=== PATIENT | female | born 1950 ===

== ENCOUNTER 2021-02-01 16:36 | Emergency (ER) | payer MEDICARE ==
[2021-02-01] MEDS ORDERED: LIDOCAINE (4%) 40 MG/ML TOPICAL SOLN 50 ML BOTTLE TP ONE (17:28)
[2021-02-01] MEDS ORDERED: METOCLOPRAMIDE 10 MG/2 ML INJ IV ONE (17:28)
[2021-02-01] MEDS ORDERED: diphenhydrAMINE 50 MG/ML VIAL IV ONE (17:28)
[2021-02-01] MEDS ORDERED: ACETAMINOPHEN 325 MG TAB PO ONE (17:28)
[2021-02-01] MEDS ORDERED: SODIUM CHLORIDE 0.9% 500 ML 500 ML IV ONE (17:28)
[2021-02-01] MEDS ORDERED: amLODIPine 5 MG TAB PO ONE (17:29)
--- NOTE | 2021-02-01 17:29 | Emergency Department Report ---
ED General Adult HPI - General Chief complaint: Headache Stated complaint: HBP/ HEADACHE PUI?: No Time Seen by Provider: 02/01/21 16:51 Source: patient, RN notes reviewed Mode of arrival: Ambulatory Limitations: Language Barrier - History of Present Illness Initial comments: The patient was evaluated in the emergency department for symptoms described in the history of present illness. He/she was evaluated in the context of the global COVID-19 pandemic, which necessitated consideration that the patient might be at risk for infection with the virus that causes COVID-19. Institutional protocols and algorithms that pertain to the evaluation of patients at risk for COVID-19 are in a state of rapid change based on informatio n released by regulatory bodies including the CDC and federal and state organizations. These policies and algorithms were followed during the patient's care in the emergency department. Please note that these policies, procedures and recommendations changed on a rapid basis. 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 She is not known to myself previously. Her past medical history includes diabetes, and hypertension. Current medications include Metformin, Percocet, prednisone, HCTZ, atorvastatin, gabapentin, losartan, and sodium bicarbonate. She also has a history of cataract procedure on her bilateral eyes in the distant past. The patient presents to the ER today with a complaint of headache, nausea, and high blood pressure. The patient states she checks her blood pressure on a morning basis, and it typically is 1 20-1 30 systolic. This morning was 150 systolic. She also complains of headache which is frontal yesterday, and bitemporal today and yesterday, present since around 7:00 PM yesterday. The headache is constant. The headache is not sudden or thunderclap in nature. The headache is not maximal in intensity at onset. The patient denies loss of vision, and she denies pain with chewing or swallowing food. She also describes paracervical neck pain, which is similar to prior headaches, although more intense. She had a headache like this approximately 2 weeks ago, which was similar in nature, although not intense. The patient denies midline neck pain, stiffness of the neck, fever, chest pain, abdominal pain, vomiting, extremity weakness and numbness, dysarthria, and ataxia. She also states she has not started any new or different medications. She has not taken anything at home for her headache. -: Gradual, hour(s), days(s) Location: head Radiation: other (The headache is occasionally frontal, occasionally right- sided, left-sided, pain in the bilateral neck) Severity scale (0 -10): 9 Quality: other (Patient does not describe the qualitative nature of) Consistency: constant Improves with: none Worsens with: none - Related Data Previous Rx's Medication Instructions Recorded Last Taken Type Acetaminophen [Non-Aspirin Extra 500 mg PO Q6HR PRN #30 tablet 02/01/21 Unknown Rx Strength] Ibuprofen [Motrin] 400 mg PO Q8H PRN #30 tablet 02/01/21 Unknown Rx Metoclopramide [Reglan] 10 mg PO QID PRN #30 tablet 02/01/21 Unknown Rx Allergies Allergy/AdvReac Type Severity Reaction Status Date / Time No Known Allergies Allergy Unverified 02/01/21 16:51 ED Review of Systems ROS: Stated complaint: HBP/ HEADACHE Other details as noted in HPI Constitutional: denies: fever, malaise Eyes: other (Patient reports chronic photosensitivity). denies: vision change ENT: other (Patient reports chronic tinnitus) Respiratory: denies: cough Cardiovascular: denies: chest pain Gastrointestinal: nausea. denies: abdominal pain Genitourinary: denies: dysuria Neurological: headache, weakness (Generalized weakness). denies: numbness, paresthesias, confusion, abnormal gait, vertigo Psychiatric: anxiety ED Past Medical Hx - Past Medical History Hx Hypertension: Yes Hx Diabetes: Yes Additional medical history: HLD, arthritis - Surgical History Past Surgical History?: No - Social History Smoking Status: Never Smoker - Medications Home Medications: Home Medications Medication Instructions Recorded Confirmed Last Taken Type Acetaminophen [Non-Aspirin Extra 500 mg PO Q6HR PRN #30 tablet 02/01/21 Unknown Rx Strength] Ibuprofen [Motrin] 400 mg PO Q8H PRN #30 tablet 02/01/21 Unknown Rx Metoclopramide [Reglan] 10 mg PO QID PRN #30 tablet 02/01/21 Unknown Rx ED Physical Exam - General Limitations: Language Barrier General appearance: alert, anxious - Head Head exam: Present: atraumatic, normocephalic - Eye Eye exam: Present: normal appearance (Status post cataract surgery to the bilateral eyes. There is no direct or consensual photophobia.), EOMI, other (Visual acuity is intact to finger counting and color perception at a close distance). Absent: nystagmus - ENT ENT exam: Present: normal exam, normal orophraynx, mucous membranes moist, normal external ear exam - Neck Neck exam: Present: normal inspection, full ROM. Absent: tenderness, meningismus - Respiratory Respiratory exam: Present: normal lung sounds bilaterally. Absent: respiratory distress, wheezes, rales, rhonchi, stridor, decreased breath sounds - Cardiovascular Cardiovascular Exam: Present: regular rate, normal rhythm, normal heart sounds. Absent: bradycardia, tachycardia, irregular rhythm, systolic murmur, diastolic murmur, rubs, gallop - GI/Abdominal GI/Abdominal exam: Present: soft. Absent: distended, tenderness, guarding, rebound, rigid, pulsatile mass - Extremities Exam Extremities exam: Present: normal inspection, full ROM, other (2+ pulses noted in the bilateral upper and lower extremities. There is no palpable cord. negative Homans sign. Muscular compartments are soft. The pelvis is stable.). Absent: pedal edema, calf tenderness - Back Exam Back exam: Present: normal inspection, full ROM. Absent: tenderness, CVA tenderness (R), CVA tenderness (L), paraspinal tenderness, vertebral tenderness - Neurological Exam Neurological exam: Present: alert, oriented X3, normal gait, other (No facial droop. Tongue midline. Extraocular movements intact bilaterally. Facial sensation intact to light touch in V1, V2, V3 distribution bilaterally. 5 and a 5 strength in 4 extremities. Sensation intact to light touch in 4 extremities.). Absent: motor sensory deficit - Psychiatric Psychiatric exam: Present: anxious - Skin Skin exam: Present: warm, dry, intact, normal color. Absent: rash ED Course Vital Signs 02/01/21 02/01/21 16:40 19:07 Temperature 98.3 F 97.8 F Pulse Rate 102 H 87 Respiratory 18 12 Rate Blood Pressure 186/93 140/81 [Right] O2 Sat by Pulse 100 98 Oximetry - Reevaluation(s) Reevaluation #1: 02/01/21 18:34 Differential diagnosis, including but not limited to: Migraine headache, tension headache, cluster headache, temporal arteritis, dissection, thrombosis, intracranial lesion, hypertension Assessment and plan: 60-year-old female, who is afebrile with reassuring vital signs with exception of hypertension elevated blood pressure, presenting with headache which is frontal, bitemporal, not sudden or thunderclap in onset, not maximal intensity at onset, has reached maximal intensity approximately 20 hours after symptom onset. There is no temporal tenderness, there is no jaw claudication, sed rate within normal limits, temporal arteritis is unlikely. No meningeal signs or fever, unlikely to be strep throat, or meningitis. No meningeal signs, headache not sudden or thunderclap in nature, not maximal in intensity, this is unlikely to be subarachnoid hemorrhage. There is no direct or consensual photophobia, visual acuity is appropriate, (visual acuity intact to finger counting, color perception) corneas are not cloudy or hazy, therefore, glaucoma is very unlikely. Patient lives at home with other people, no other symptoms described at home with other individuals, therefore, carbon monoxide is unlikely. Given advanced age, migratory nature of symptoms, nonspecific nature of headache that is described, we will obtain CT scan of the brain, CT angiogram head and neck. We will obtain appropriate laboratory studies. We will treat with Reglan, Benadryl, intranasal lidocaine, Tylenol, and magnesium. Reassess after initial data points. I discussed this plan of care with the patient using a demo specialist, and her grandson who is at the bedside. They articulated understanding, and were agreeable to this plan of care. All questions answered. 02/01/21 18:37 02/01/21 20:44 Patient resting comfortably in stretcher. No acute distress. Blood pressure improved. Repeat neurologic examination unchanged. Endorses improvement in headache. Declined sphenopalatine ganglion block. Imaging studies pending. 02/01/21 23:11 Patient reassessed multiple times. CT scan brain negative. CT angiogram head and neck negative for acute findings. Repeat neurologic examination unchanged. She endorses improvement in symptoms. Suitable to be discharged to follow-up with outpatient primary care doctor. ED Medical Decision Making - Lab Data Result diagrams: 02/01/21 17:35 02/01/21 17:35 Vital Signs 02/01/21 16:40 Temperature 98.3 F Pulse Rate 102 H Respiratory 18 Rate Blood Pressure 186/93 [Right] O2 Sat by Pulse 100 Oximetry Lab Results 02/01/21 02/01/21 02/01/21 Range/Units 17:35 17:35 17:35 WBC 10.3 (4.5-11.0) K/mm3 RBC 4.24 (3.65-5.03) M/mm3 Hgb 12.4 (10.1-14.3) gm/dl Hct 37.3 (30.3-42.9) % MCV 88 (79-97) fl MCH 29 (28-32) pg MCHC 33 (30-34) % RDW 15.8 H (13.2-15.2) % Plt Count 444 H (140-440) K/mm3 Lymph % (Auto) 11.8 L (13.4-35.0) % [place] % (Auto) 4.3 (0.0-7.3) % Eos % (Auto) 0.2 (0.0-4.3) % Baso % (Auto) 0.0 (0.0-1.8) % Lymph # (Auto) 1.2 (1.2-5.4) K/mm3 [place] # (Auto) 0.4 (0.0-0.8) K/mm3 Eos # (Auto) 0.0 (0.0-0.4) K/mm3 Baso # (Auto) 0.0 (0.0-0.1) K/mm3 Seg Neutrophils % 83.7 H (40.0-70.0) % Seg Neutrophils # 8.6 H (1.8-7.7) K/mm3 ESR 13 (0-20) mm/Hr PT 14.0 (12.2-14.9) Sec. INR 1.03 (0.87-1.13) Sodium 136 L (137-145) mmol/L Potassium 4.5 (3.6-5.0) mmol/L Chloride 103.6 (98-107) mmol/L Carbon Dioxide 18 L (22-30) mmol/L Anion Gap 19 mmol/L BUN 17 (7-17) mg/dL Glucose 121 H (65-100) mg/dL Calcium 9.6 (8.4-10.2) mg/dL Magnesium 1.50 L (1.7-2.3) mg/dL Total Creatine Kinase 35 (30-135) units/L - EKG Data -: EKG Interpreted by [facility] EKG shows normal: sinus rhythm Rate: normal - EKG Data 02/01/21 20:44 EKG interpreted at 19: 36 Sinus rhythm, rate 86 bpm. Normal axis, normal P wave axis, poor R wave progression, intervals within normal limits. Abnormal EKG. Not a STEMI. - Radiology Data Radiology results: pending, report reviewed, image reviewed CTA HEAD AND NECK WITH CONTRAST HISTORY: Headache, neck pain COMPARISON: None. TECHNIQUE: All CT scans at this location are performed using CT dose reduction for ALARA by means of automated exposure control.. 3-D/MIP reformats postprocessed. Percentage stenosis is determined by direct quantitative measurements of diseased internal carotid artery diameter compared with normal distal internal carotid artery reference segments or by criteria similar to NASCET where applicable. CONTRAST: 100 ml of Omnipaque 350 FINDINGS: CT HEAD: BRAIN / INTRACRANIAL CONTENTS: No acute hemorrhage, mass effect, midline shift, or hydrocephalus. No appreciable acute large territorial or lacunar infarct. ORBITS: No significant abnormality of visualized orbits. SINUSES / MASTOIDS: No significant abnormality of visualized sinuses and mastoid air cells. CTA HEAD: Intracranial vertebral arteries: No significant abnormality. Basilar artery: No significant abnormality. Posterior cerebral arteries: No significant abnormality. Intracranial internal carotid arteries: No significant abnormality. Anterior cerebral arteries: No significant abnormality. Middle cerebral arteries: No significant abnormality. Dural venous sinuses:Not optimally opacified. No significant abnormality. CTA NECK: Aortic arch: No significant abnormality. Cervical vertebral arteries: No significant abnormality. Common carotid arteries: No significant abnormality. Cervical internal carotid arteries: No significant abnormality. Additional findings: None. IMPRESSION: 1. No significant stenosis or large vessel occlusion in the neck or intracranial arteries. Signer Name: Manuel Bran MD Signed: 02/01/2021 9:59 PM Workstation Name: [id number] Critical care attestation.: If time is entered above; I have spent that time in minutes in the direct care of this critically ill patient, excluding procedure time. ED Disposition Clinical Impression: Elevated blood pressure reading, Neck pain Headache Qualifiers: Headache type: unspecified Headache chronicity pattern: unspecified pattern Intractability: not intractable Qualified Code(s): R51.9 - Headache, unspecified Disposition: 01 HOME / SELF CARE / HOMELESS Is pt being admited?: No Does the pt Need Aspirin: No Condition: Good Instructions: Hypertension, Adult, General Headache Without Cause Additional Instructions: Please continue current outpatient medications, except for Metformin. Do not take metformin medication for the next 2 days. Please take the prescribed pain medications as needed for nausea, and headache. Please follow-up with your primary care doctor within the next 3 to 5 days for repeat checkup and evaluation. Please have your primary care doctor contact the medical records department to obtain copies of laboratory studies and radiology studies, to follow-up on nonemergent incidental findings. Please return to the emergency room right away with new pain, worsened pain, migration of pain, projectile vomiting, change in mental status, confusion, inability to tolerate liquid feeds, new, worsened or different symptoms not present on the initial emergency room evaluation Contine con los medicamentos actuales para pacientes ambulatorios, excepto la metformina. No tome medicamentos con metformina james los prximos 2 taylor. Woodman los analgsicos recetados segn sea necesario para las nuseas y el dolor de ines. Kvng un seguimiento con cespedes mdico de atencin primaria dentro de los prximos 3 a 5 taylor para repetir el chequeo y la evaluacin. Pdale a cespedes mdico de atencin primaria que se comunique con el departamento de registros mdicos para obtener copias de los estudios de laboratorio y los estudios de radiologa, para realizar un seguimiento de los hallazgos incidentales que no ayala de emergencia. Regrese a la glenna de emergencias de inmediato con dolor nuevo, empeoramiento del dolor, migracin del dolor, vmitos en proyectil, cambio en el estado mental, confusin, incapacidad para tolerar alimentos lquidos, sntomas nuevos, empeorados o diferentes que no estn presentes en la evaluacin inicial de la glenna de emergencias Referrals: MICHEL SQUIRES MD [Staff Physician] - 3-5 Days [facility] [Provider Group] - 3-5 Days Print Language: SWEDISH
[2021-02-01 17:55] LABS: Eosinophils % (Auto) 0.2 % (0.0-4.3); Hematocrit 37.3 % (30.3-42.9); Hemoglobin 12.4 gm/dl (10.1-14.3); Lymphocytes # (Auto) 1.2 K/mm3 (1.2-5.4); Lymphocytes % (Auto) 11.8 % (13.4-35.0); Mean Corpuscular HGB Conc 33 % (30-34); Mean Corpuscular Volume 88 fl (79-97); Monocytes # (Auto) 0.4 K/mm3 (0.0-0.8); Monocytes % (Auto) 4.3 % (0.0-7.3); Platelet Count 444 K/mm3 (140-440); Red Blood Count 4.24 M/mm3 (3.65-5.03); Red Cell Distribution Width 15.8 % (13.2-15.2)
[2021-02-01 18:01] LABS: INR 1.03 (0.87-1.13)
[2021-02-01 18:08] LABS: Blood Urea Nitrogen 17 mg/dL (7-17); Calcium 9.6 mg/dL (8.4-10.2); Hemolysis Index 9
[2021-02-01 18:11] LABS: Erythrocyte Sedimentation Rate 13 mm/Hr (0-20)
[2021-02-01] MEDS ORDERED: MAGNESIUM OXIDE 400 MG TAB PO STA (18:30)
[2021-02-01] MEDS ORDERED: MAGNESIUM SULFATE 2 GM/50 ML BAG IV ONE (18:30)
[2021-02-01 18:34] LABS: BUN/Creatinine Ratio 28
[2021-02-01 19:11] VITALS: BP 140/81
--- NOTE | 2021-02-01 21:41 | Cat Scan Report ---
CT head/brain wo con INDICATION / CLINICAL INFORMATION: headache. TECHNIQUE: Axial CT imaging of the brain was obtained without contrast. Coronal and sagittal reformatted imaging obtained and reviewed. All CT scans at this location are performed using CT dose reduction for ALAR A by means of automated exposure control. COMPARISON: None available. FINDINGS: No intracranial hemorrhage, mass, or midline shift is appreciated. No extra-axial fluid collection or suggestion of acute territorial infarction. The ventricular system and basilar cisterns are unremark able. There is mild to moderate cerebral and cerebellar atrophy, age appropriate. Visualized paranasal sinuses and mastoid air cells are well aerated and clear. No calvarial abnormali ty noted. IMPRESSION: 1. No acute intracranial abnormality. Signer Name: Janna Burton MD Signed: 02/01/2021 9:37 PM Workstation Name: [id number]
--- NOTE | 2021-02-01 23:03 | Cat Scan Report ---
CTA HEAD AND NECK WITH CONTRAST HISTORY: Headache, neck pain COMPARISON: None. TECHNIQUE: All CT scans at this location are performed using CT dose reduction for ALARA by means of automated exposure control.. 3-D/MIP reformats postprocessed. Percentage stenosis is determined by d irect quantitative measurements of diseased internal carotid artery diameter compared with normal dis jimmie internal carotid artery reference segments or by criteria similar to NASCET where applicable. CONTRAST: 100 ml of Omnipaque 350 FINDINGS: CT HEAD: BRAIN / INTRACRANIAL CONTENTS: No acute hemorrhage, mass effect, midline shift, or hydrocephalus. No appreciable acute large territorial or lacunar infarct. ORBITS: No significant abnormality of visualized orbits. SINUSES / MASTOIDS: No significant abnormality of visualized sinuses and mastoid air cells. CTA HEAD: Intracranial vertebral arteries: No significant abnormality. Basilar artery: No significant abnormality. Posterior cerebral arteries: No significant abnormality. Intracranial internal carotid arteries: No significant abnormality. Anterior cerebral arteries: No significant abnormality. Middle cerebral arteries: No significant abnormality. Dural venous sinuses:Not optimally opacified. No significant abnormality. CTA NECK: Aortic arch: No significant abnormality. Cervical vertebral arteries: No significant abnormality. Common carotid arteries: No significant abnormality. Cervical internal carotid arteries: No significant abnormality. Additional findings: None. IMPRESSION: 1. No significant stenosis or large vessel occlusion in the neck or intracranial arteries. Signer Name: Manuel Bran MD Signed: 02/01/2021 10:59 PM Workstation Name: [id number]
--- NOTE | 2021-02-02 11:09 | Electrocardiograph Report ---
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
== END 2021-02-02 00:05 | disposition home or self-care (01) ==
LOC: ED 16:36
DX: M54.2 Cervicalgia (principal); R03.0 Elevated blood-pressure reading, without diagnosis of hypertension; E11.8 Type 2 diabetes mellitus with unspecified complications; R51.9 Headache, unspecified; I10 Essential (primary) hypertension
CPT/HCPCS: 36415; 70450; 70496; 70498; 80048; 82550; 83735; 85025; 85610; 85652; 93005; 96365; 96375; 99284; J1200; J2765; J7040; Q9967